=== PATIENT | male | born 1990 | race Caucasian/White ===

== ENCOUNTER 2019-04-14 00:43 | Emergency (ER) | payer MEDICAID ==
[~2019-04-14] VITALS: Ht 167.6 cm; Wt 68.0 kg
[2019-04-14] MEDS ORDERED: SODIUM CHLORIDE 0.9% 1,000 ML IV ONE (00:50)
[2019-04-14] MEDS ORDERED: MORPHINE SULFATE 4 MG/ML CPJ (NOT FOR IM USE) IV ONE (01:00)
[2019-04-14] MEDS ORDERED: LIDOCAINE 1%/EPI 1:100,000 10 ML VIAL IJ ONE (01:00)
[2019-04-14] MEDS ORDERED: LIDOCAINE HCL/EPINEPHRINE 1%-EPI 1:100,000 20 ML VIAL INFIL NR (01:15)
[2019-04-14] MEDS ORDERED: CEFAZOLIN 1000MG PREMIX 50 ML IV ONE (02:30)
[2019-04-14 03:54] VITALS: BP 112/62
== END 2019-04-14 05:20 | disposition short-term general hospital (02) ==
LOC: ER 00:43
DX: S61.412A Laceration without foreign body of left hand, initial encounter (principal); F17.200 Nicotine dependence, unspecified, uncomplicated; W26.0XXA Contact with knife, initial encounter; Y93.9 Activity, unspecified; Y92.009 Unspecified place in unspecified non-institutional (private) residence as the place of occurrence of the external cause
CPT/HCPCS: 12002; 73130; 96374; 99285; J2270; J3490; J7030; Z7610

== ENCOUNTER 2024-03-07 17:20 | Emergency (ER) | payer OTHER ==
[~2024-03-07] VITALS: Ht 157.5 cm; Wt 78.0 kg
[2024-03-07 17:55] VITALS: TEMP 98.5; O2SAT 100
[2024-03-07 17:55] LABS: CLARITY URINE CLEAR (CLEAR); COLOR URINE YELLOW (YELLOW); GLUCOSE URINE NEGATIVE (NEGATIVE); KETONES URINE NEGATIVE (NEGATIVE); LEUKOCYTE ESTERASE URINE NEGATIVE (NEGATIVE); NITRITE URINE NEGATIVE (NEGATIVE); OCCULT BLOOD URINE NEGATIVE (NEGATIVE); PH URINE 6.5 (4.5-8.0); PROTEIN URINE NEGATIVE (NEGATIVE); SPECIFIC GRAVITY URINE 1.026 (1.005-1.030)
[2024-03-07 18:48] VITALS: BP 124/78; PULSE 67; RESP 14
[2024-03-07] MEDS: AZITHROMYCIN 500 MG TABLET PO ONE (18:48)
[2024-03-07] MEDS: IBUPROFEN 600MG TABLET PO ONE (18:48)
[2024-03-07] MEDS: CEFTRIAXONE SODIUM 500MG VIAL IM ONE (18:48)
[2024-03-07] MEDS ORDERED: IBUP-1523 MT (19:18)
[2024-03-07] MEDS ORDERED: TOPUD MT (19:18)
[2024-03-10 07:13] LABS: CHLAMYDIA TRACHOMATIS NAA Positive (Negative); NEISSERIA GONORRHOEAE NAA Negative (Negative)
== END 2024-03-07 19:45 | disposition home or self-care (01) ==
LOC: ER 17:20
DX: S80.02XA Contusion of left knee, initial encounter (principal); Z20.2 Contact with and (suspected) exposure to infections with a predominantly sexual mode of transmission; W18.39XA Other fall on same level, initial encounter; Y93.89 Activity, other specified; Y92.89 Other specified places as the place of occurrence of the external cause; Y99.8 Other external cause status
CPT/HCPCS: 87491; 87591; 81003; 73562; 96372; 99284; J0696; Z7610

== ENCOUNTER 2024-03-29 00:13 | Emergency (ER) | payer OTHER ==
[~2024-03-29] VITALS: Ht 177.8 cm; Wt 68.0 kg
[~2024-03-29 00:13] MED LIST: IBUP-1523 MT; TOPUD MT
[2024-03-29 00:16] VITALS: TEMP 98.2; O2SAT 96
[2024-03-29 01:08] LABS: BASOPHILS % 0.5 % (0.0-2.0); DIFFERENTIAL COMMENT 0; EOSINOPHILS % 4.2 % (0.0-5.0); HEMATOCRIT. 38.3 % (42.0-52.0); HEMOGLOBIN. 12.1 g/dL (14.0-18.0); LYMPHOCYTES % 31.7 % (20.0-50.0); MEAN CORPUSCULAR HEMOGLOBIN 22.7 pg (28.0-32.0); MEAN CORPUSCULAR HGB CONC 31.7 g/dL (31.0-37.0); MEAN CORPUSCULAR VOLUME 71.5 fL (80.0-94.0); MEAN PLATELET VOLUME 7.2 fl (7.4-10.4); MONOCYTES % 9.7 % (2.0-8.0); NEUTROPHILS % 53.9 % (40.0-76.0); PLATELET 271 x1000/uL (130-400); RED BLOOD CELL COUNT 5.36 mill/uL (4.7-6.1); RED CELL DISTRIBUTION WIDTH 15.1 % (11.6-14.6); WHITE BLOOD COUNT 7.1 x1000/uL (4.5-11.0)
[2024-03-29 01:14] LABS: CHLORIDE 104 mEq/L (98-107); POTASSIUM 4.1 mEq/L (3.5-5.1); SODIUM 139 mEq/L (136-145)
[2024-03-29 01:15] LABS: CALCIUM 8.9 mg/dL (8.7-10.4); CARBON DIOXIDE 33 mEq/L (21-32)
[2024-03-29 01:20] LABS: GLUCOSE 138 mg/dL (70-105); UREA NITROGEN BLOOD 10 mg/dL (9-23)
[2024-03-29 01:26] LABS: ADD RBC MORPHOLOGY YES
[2024-03-29 02:38] VITALS: BP 124/77; PULSE 78; RESP 14; O2SAT 99
[2024-03-29 06:55] LABS: MICROCYTOSIS 2+
[2024-03-29 06:56] LABS: HYPOCHROMASIA 1+; PLATELET ESTIMATE NORMAL
== END 2024-03-29 02:43 | disposition home or self-care (01) ==
LOC: ER 00:13
DX: R55 Syncope and collapse (principal); Z53.29 Procedure and treatment not carried out because of patient's decision for other reasons
CPT/HCPCS: 36415; 80048; 85025; 99283